=== PATIENT | female | born 1980 | race Caucasian/White ===

== ENCOUNTER 2016-12-16 23:51 | Emergency (ER) | payer OTHER ==
[~2016-12-16] VITALS: Ht 162.6 cm; Wt 90.7 kg
[2016-12-17] MEDS ORDERED: NS 1,000 ML IV ONE (00:15)
[2016-12-17 00:36] LABS: BASO % 0.5 % (0.0-1.0); EOS # 0.1 K/mm3 (0.0-0.50); EOS % 1.5 % (0.0-3.0); LARGE UNSTAINED CELL # 0.1 K/mm3 (0.0-0.4); LARGE UNSTAINED CELL % 1.5 % (0.0-4.0); LYMPH # 1.9 K/mm3 (1.5-4.5); LYMPH % 21.8 % (24.0-44.0); MEAN CORPUSCULAR HEMOGLOBIN 31.3 pg (27.0-33.0); MEAN CORPUSCULAR HGB CONC 34.8 g/dl (32.0-36.5); MEAN CORPUSCULAR VOLUME 89.9 fl (80.0-96.0); MONO # 0.4 K/mm3 (0.0-0.8); MONO % 4.9 % (0.0-5.0); NEUTROPHILS # 6.1 K/mm3 (1.8-7.7); NEUTROPHILS % 69.8 % (36.0-66.0); PLATELET COUNT, AUTOMATED 189 k/mm3 (150-450); RED CELL DISTRIBUTION WIDTH 12.6 % (11.5-14.5); WHITE BLOOD COUNT 8.7 K/mm3 (4.0-10.0)
[2016-12-17] MEDS ORDERED: KETOROLAC 30 MG/ML VIAL (J1885) IV ONE (00:45)
[2016-12-17 00:52] LABS: CONTROL LINE HCG INT CTR LINE PRESENT
[2016-12-17 00:59] LABS: ANION GAP 7 MEQ/L (8-16); BLOOD UREA NITROGEN 12 MG/DL (7-18); CALCIUM LEVEL 9.8 MG/DL (8.5-10.1); CARBON DIOXIDE LEVEL 27 MEQ/L (21-32); CHLORIDE LEVEL 104 MEQ/L (98-107); CREATININE FOR GFR 0.54 MG/DL (0.55-1.02); GLOMERULAR FILTRATION RATE > 60.0 (>60); GLUCOSE, FASTING 104 MG/DL (70-105); POTASSIUM SERUM 3.4 MEQ/L (3.5-5.1); SODIUM LEVEL 138 MEQ/L (136-145)
[2016-12-17] MEDS ORDERED: PRED20TA PO (01:25)
[2016-12-17] MEDS ORDERED: TESS100C PO (01:25)
[2016-12-17] MEDS ORDERED: ZITHTAB PO (01:25)
[2016-12-17] MEDS ORDERED: BENZONATATE 100 MG CAP PO ONE (01:30)
[2016-12-17] MEDS ORDERED: predniSONE 20 MG TAB PO ONE (01:30)
[2016-12-17] MEDS ORDERED: ALBUTEROL 90 MCG/ACT 8GM HFA INHALER INH ONE (01:30)
[2016-12-17 01:43] VITALS: BP 158/87
--- NOTE | 2016-12-17 08:03 | REP ---
Clinical: Cough and dyspnea . Comparison: None . Technique: PA and lateral. Findings: The mediastinum and cardiac silhouette are normal. The lung delacruz are clear and without acute consolidation, effusion, or pneumothorax. The skeletal structures are intact and normal. Impression: 1. No acute cardiopulmonary process. Signed by Khai Farrell MD 12/17/2016 07:54 A
--- NOTE | 2016-12-17 08:35 | ECGEPIP ---
Stationary ECG Study [facility] - ED Test Date: 2016-12-17 Pat Name: JACQUE ARIZA Department: Room: - Gender: F Underwriting Specialist: danna : 1980 Requested By: CRISTINA Mahmood Order Number: [id number] Reading MD: Renzo Shea Measurements Intervals [place] Rate: 95 P: 58 CO: 191 QRS: 48 QRSD: 85 T: 12 QT: 333 QTc: 420 Interpretive Statements SINUS RHYTHM NSTTW ABNORMALITIES NO PRIORS Electronically Signed On 12-17-2016 8:34:59 EDT by Renzo Shea
== END 2016-12-17 01:44 | disposition home or self-care (01) ==
LOC: M ED 12-17 01:01
DX: J20.9 Acute bronchitis, unspecified (principal); R03.0 Elevated blood-pressure reading, without diagnosis of hypertension; Z79.51 Long term (current) use of inhaled steroids
CPT/HCPCS: 71020; 80048; 82550; 82553; 84703; 85025; 85379; 87040; 87804; 93005; 93041; 94760; 96361; 96374; 99284; J1885

== ENCOUNTER 2017-01-18 09:01 | Emergency (ER) | payer OTHER ==
[~2017-01-18] VITALS: Ht 162.6 cm; Wt 90.7 kg
[~2017-01-18 09:01] MED LIST: PRED20TA PO; TESS100C PO; ZITHTAB PO
[2017-01-18 09:02] VITALS: BP 166/105
[2017-01-18] MEDS ORDERED: IBUP600T26 PO (09:08)
[2017-01-18] MEDS ORDERED: NAPR500T2 PO (09:40)
--- NOTE | 2017-01-18 09:43 | REP ---
LEFT FOOT: Four views of the left foot performed. There is no acute fracture or dislocation. Moderate inferior calcaneal spurring and mild posterior calcaneal spurring is noted. IMPRESSION: No acute fracture or dislocation. Signed by Ivan Vernon MD 01/18/2017 04:45 P
== END 2017-01-18 09:54 | disposition home or self-care (01) ==
LOC: M ED 09:28
DX: S90.32XA Contusion of left foot, initial encounter (principal); X50.1XXA Overexertion from prolonged static or awkward postures, initial encounter; Y92.89 Other specified places as the place of occurrence of the external cause; Y93.89 Activity, other specified; Y99.9 Unspecified external cause status